=== PATIENT | female | born 1985 | race Caucasian/White ===

== ENCOUNTER → 2017-02-27 | Outpatient (CLI) | payer OTHER, BC ==
[~2017-02-27] MED LIST: PRENTAB26 PO
[2017-02-27 17:29] LABS: BASO % 0.3 %; BASO ABS # 0.02 K/uL (0-0.2); COMPLETE YES; EOS % 2.7 %; HEMATOCRIT 41.9 % (37-47); IG% 0.2 %; LYMPH % 26.5 %; LYMPH ABS # 1.58 K/uL (1.2-3.4); MEAN CORPUSCULAR HEMOGLOBIN 28.1 pg (25-34); MEAN CORPUSCULAR HGB CONC 33.4 g/dl (32-36); MEAN PLATELET VOLUME 11.6 fL (7.4-10.4); MONO % 6.7 %; NEUT % 63.6 %; PLATELET COUNT 206 K/uL (130-400); RED BLOOD COUNT 4.99 M/uL (4.2-5.4); WHITE BLOOD COUNT 5.96 K/uL (4.8-10.8)
[2017-02-27 17:39] LABS: ALB/GLOB RATIO 1.5 (0.9-2); ALT/SGPT 21 U/L (12-78); AST/SGOT 11 U/L (15-37); BLOOD UREA NITROGEN 20 mg/dl (7-18); BUN/CREATININE RATIO 27.6 (10-20); CALCIUM 9.1 mg/dl (8.5-10.1); CARBON DIOXIDE 26 mmol/L (21-32); CHLORIDE 107 mmol/L (98-107); CREATININE 0.71 mg/dl (0.60-1.20); GLUCOSE 74 mg/dl (70-99); POTASSIUM 3.7 mmol/L (3.5-5.1); SODIUM 141 mmol/L (136-145)
[2017-02-27 17:49] LABS: ALKALINE PHOSPHATASE 52 U/L (45-117)
== END | disposition home or self-care (01) ==
LOC: C.LABBFT 11:47
PROVIDERS: ATTEND Physician Assistant Medical
DX: L29.9 Pruritus, unspecified (principal)

== ENCOUNTER → 2017-03-01 | Outpatient (CLI) | payer OTHER, BC ==
[~2017-03-01] MED LIST changes: +OPTIRAY 320 IV PRN
--- NOTE | 2017-03-01 09:10 | DIAGNOSTIC IMAGING REPORT ---
CT SCAN OF THE NECK WITH IV CONTRAST CLINICAL HISTORY: Posterior cervical lymphadenopathy. COMPARISON STUDY: No priors. TECHNIQUE: Following the IV administration of 94 cc of Optiray 320, CT scan of the soft tissues of the neck was performed from the skull base to the upper chest. Images are reviewed in the axial, sagittal, and coronal planes. IV contrast was administered without complication. CT DOSE: 338.03 mGycm FINDINGS: Pharynx: The nasopharynx, oropharynx, and laryngeal pharynx are normal in appearance. The pharyngeal airway is widely patent. There is no evidence of mass lesion. The vocal cords are symmetric. The parapharyngeal fat is well maintained. The prevertebral/retropharyngeal soft tissues are within normal limits. Calcified tonsilliths is noted on the left. The epiglottis is normal. Lymphadenopathy: No pathologically enlarged cervical lymph nodes are identified. There are prominent left cervical radicular lymph nodes identified. The largest is seen on image #147 and measures 12 x 5 mm. Soft tissues: A cutaneous marker is located over the left lower neck. This is seen over the sternocleidomastoid muscle and the left external jugular vein. Thyroid: Normal in size and attenuation. Bilateral low-attenuation thyroid nodules measure up to 6 mm. Salivary glands: The parotid and submandibular glands are within normal limits. Brain parenchyma: The visualized brain parenchyma at the skull base is normal in appearance. Vascular structures: The internal carotid arteries and jugular veins are widely patent. Aortic arch demonstrates 4-vessel variant anatomy. The left vertebral artery is diminutive and arises from the arch. Skeletal structures: Imaged portions of the calvarium at the skull base are within normal limits. The cervical spine appears intact. There are bilateral cervical ribs. There is fusion of the right cervical rib with the right first rib. No lytic or blastic lesions are seen. Sinuses and mastoids: The visualized paranasal sinuses are clear. The mastoid air cells are well pneumatized. Orbits: The bony orbits are intact as visualized. The orbital contents are normal in appearance. Lung apices: Visualized apical lung parenchyma is clear. IMPRESSION: 1. No acute abnormality is seen. No pathologically enlarged cervical lymph nodes are identified. 2. The cutaneous marker over the left lower neck overlies the left sternocleidomastoid muscle and the left external jugular vein. There are small left supraclavicular lymph nodes in this region which measure up to 12 x 5 mm. These are not pathologically enlarged and may be on a reactive basis. Clinical correlation in follow-up will be required. If these nodes enlarge consider ultrasound for reassessment. Electronically signed by: Jorge Alberto Lopez M.D. 03/01/2017 9:09 AM Dictated Date/Time: 03/01/2017 8:59 AM
== END | disposition home or self-care (01) ==
LOC: C.CTS 08:27
PROVIDERS: ATTEND Physician Assistant Medical
DX: R59.0 Localized enlarged lymph nodes (principal)